=== PATIENT | male | born 1990 | race African-American/Black ===

== ENCOUNTER 2023-05-02 14:18 | Emergency (ER) | payer BC ==
--- NOTE | 2023-05-02 16:24 | ED Physician Documentation ---
History of Present Illness - Stated complaint Stated Complaint: IRREGULAR EKG - Chief complaint Chief Complaint: Cardiac - Additonal information Additional information: 33-year-old male with no pertinent past medical history presents emergency department for concerns of abnormal EKG. When I went to evaluate the patient patient reports that he accidentally checked into the emergency department did not know that the patient coordinator front desk was to the emergency department. Patient said that he was getting a physical exam workup to go work in [place].Patient said that he was given an abnormal EKG and they told him that if he wanted to go to [place] he needed to have repeat EKG or follow-up with cardiology. He said that he came to the hospital checked in on the patient coordinator front desk to try and get in with cardiology but did not realize he was checking into the emergency department and so we have repeated his EKG. He has no chest pain or shortness of breath no cardiac symptoms no cardiac history. PD PAST MEDICAL HISTORY - Past Medical History Past Medical History: No Cardiovascular: None Respiratory: None Neuro: None Endocrine/Autoimmune: None GI: None : None HEENT: None Psych: None Musculoskeletal: None Derm: None - Past Surgical History Past Surgical History: Yes - Allergies Allergies/Adverse Reactions: Allergies Allergy/AdvReac Type Severity Reaction Status Date / Time aspirin Allergy Anaphylaxis Verified 05/02/23 15:54 - Social History Does the pt smoke?: No Smoking Status: Never smoker Does the pt drink ETOH?: No Does the pt have substance abuse?: No - Immunizations Immunizations are current?: Yes - POLST Patient has POLST: No PD ED PE NORMAL - Vitals Vital signs reviewed: Yes - General General: Alert and oriented X 3, No acute distress, Well developed/nourished - HEENT HEENT: Atraumatic, Moist mucous membranes - Cardiac Cardiac: RRR, No murmur, Strong equal pulses - Respiratory Respiratory: No respiratory distress, Clear bilaterally - Abdomen Abdomen: Normal bowel sounds - Derm Derm: Normal color - Psych Psych: Normal mood, Normal affect Results - Vitals Vitals: Vital Signs - 24 hr 05/02/23 05/02/23 14:22 16:28 Temperature 36.8 C Heart Rate 88 80 Respiratory 16 15 Rate Blood Pressure 150/88 H 158/98 H O2 Saturation 98 Oxygen O2 Source Room air - EKG (time done) 1430 EKG releavant findings:: EKG personally interpreted by author of this note. Relevant findings are: Rate: Rate (enter#) (98) Rhythm: NSR [place]: Normal QRS: Normal Ischemia: Normal ST segments Computer interpretation: Agree with computer PD Medical Decision Making - ED course ED course: 33-year-old male presents emergency department accidentally for EKG. Patient was told if he wanted to go to [place] for work that he needed to have a repeat EKG he thought he was able to just present to the hospital to have this done outpatient did not realize he was checking to the emergency department. We did complete an EKG and it showed normal sinus rhythm no acute abnormalities no ST elevations or T wave inversions and he was told to follow-up with the doctor who told him he could not go to back for reevaluation. He denies any chest pain shortness of breath or any cardiac symptoms patient was offered labs but he kindly declined he said that he had just recently had labs done for this evaluation. He did ask if I was able to override what the doctor said telling him he could not go to [place] but I told him that this is something he has to follow-up with the doctor who works with a [employer] that he is going to be traveling with and not something I am able to do. He was given ER return precautions and told to follow-up with cardiology as needed all questions answered. Departure - Departure Disposition: 01 Home, Self Care Clinical Impression: ECG abnormality Condition: Good Instructions: Electrocardiogram Comments: Thank you for trusting us with your care. We have repeated an ECG and we are not seeing any Emergent abnormalities on the EKG that we have completed here in the emergency department. You have a very normal physical exam and we offered to do labs for additional work up but you have already had some complete. Please follow up with the company about your repeat ECG and follow their recommendations. Come back to ER if you start to Develop any shortness of breath, chest pain, or any other emergent symptoms. Forms: PCP List Discharge Date/Time: 05/02/23 16:31
[2023-05-02 16:36] VITALS: BP 158/98; O2SAT 98
== END 2023-05-02 16:31 | disposition home or self-care (01) ==
LOC: ED 14:18
DX: R94.31 Abnormal electrocardiogram [ECG] [EKG] (principal)
CPT/HCPCS: 93005; 99283; 99284